=== PATIENT | female | born 1985 | race Caucasian/White ===

== ENCOUNTER 2017-08-31 02:26 | Inpatient (IN) ==
--- OUTSIDE RECORDS SUMMARY | 2017-08-31 02:33 | External Medical Summary | Continuity of Care Document ---
:1985 Author Organization [facility] Address [address] [place], [place] [id number] Phone Care Team Providers Name Role Phone Mary Beth Tejeda APRN Unavailable Unavailable Allergies, Adverse Reactions, Alerts Substance Reaction Severity Status Sulfa (Sulfonamide Antibiotics) Unknown Active Penicillins Unknown Active Medications Medication Instructions Dosage Effective Dates Status Comments (start - stop) levothyroxine 50 mcg take 1 tablet by 50 MCG - Active tablet oral route every day levothyroxine 25 mcg take 1 tablet by - Active tablet oral route 2 days a week (in addition to the 50mcg) 27 mg-0.8 take 1 tablet by Not Available - Active mg Tab oral route every day Zantac 75 mg tablet take 1 tablet by 75 MG - Active oral route 2 times every day with glass of water Problems Condition Effective Dates (start - stop) Clinical Status Encounter for suprvsn of normal - , third trimester 31 weeks gestation of - Endo, nutritional and metab diseases - comp preg, first tri Encounter for suprvsn of normal - , first trimester 12 weeks gestation of - Uterine size-date discrepancy, third - trimester Low Lying Placenta Nos Or W/out - Hemorrhage, Third Trimester Endo, nutritional and metab diseases - comp preg, third tri 32 weeks gestation of - Endo, nutritional and metab diseases - comp preg, second tri Encounter for suprvsn of normal - , second trimester 16 weeks gestation of - Endo, nutritional and metab diseases - comp preg, second tri Encounter for suprvsn of normal - , second trimester 21 weeks gestation of - Endo, nutritional and metab diseases - comp preg, second tri Encounter For Screening For - Malformations 21 weeks gestation of - Endo, nutritional and metab diseases - comp preg, third tri Encounter for suprvsn of normal - , third trimester 28 weeks gestation of - Encntr screen for infections w sexl - mode of transmiss Encounter for screening for oth - infec/parastc diseases Encounter for suprvsn of normal - , first trimester Encounter for screening of - mother Less than 8 weeks gestation of - Encounter for suprvsn of normal - , second trimester 24 weeks gestation of - Active Procedures Procedure Date OB Visit No Charge Results Test Name Date and Time Measure Units Reference Range Abnormal Flag Comments Unknown Advance Directives Directive Yes / No Effective Date File Name Unknown Encounters Encounter Practice Location Reason(s) Diagnoses Date Provider Care Team Description For Visit Members Donato [place] Uterine size-date Kayden Referring In Womens discrepancy, 7-201 [place]. 700 Provider: Dmitriy LIZARRAGA, third 8 Medical [facility], [address], Lying Placenta , Albin 609, [place], Nos Or W/out 120, [place], [place], Hemorrhage, [place], [address]. [id number], [place], tel:[phone] [place] nutritional and [phone] [id number] tel:[phone] metab diseases , [place]. [id number] comp preg, third tel:+31 tri32 weeks [phone] gestation of Donato [place] Encounter for Kayden Referring In Womens suprvsn of normal 4-201 [place]. 700 Provider: Health PA, , third 8 Medical [place] [address] [email or web address] weeks Center S, [address], gestation of Albin Yarbrough [place], 120, [place], [place], [place], [address]. , [place], tel: [place] [phone] tel: , [place]. tel: [phone] Donato [place] Apr-2 Kayden In Womens 0-201 [place]. 700 Health PA, 8 Medical [address], Albin Yarbrough, 120, [place], [place], [id number], [place], [place] [id number] tel: , [place]. tel: [phone] Associates Mc Diana, nutritional Apr-1 Kayden Referring In Womens and metab 7-201 [place]. 700 Provider: Health PA, diseases comp 8 Medical [facility] PO Box preg, third Center S, [address], triEncounter for Albin Yarbrough [place], suprvsn of normal 120, [place], [place], , [place], [address]. , [email or web address] weeks [place], tel: [place] gestation of [phone] tel: , [place]. tel: [phone] Associates Mc Cortés for Mar-2 Kayden Referring In Womens suprvsn of normal 2-201 [place]. 700 Provider: Health PA, , second 8 Medical [facility] [address] [email or web address] weeks Center S, [address], gestation of Albin Yarbrough [place], 120, [place], [place], [place], [address]. , [place], tel: [place] [phone] tel: , [place]. tel: [phone] Associates Mc Diana, nutritional Mar-0 Kayden Referring In Womens and metab 1-201 [place]. 700 Provider: Health PA, diseases comp 8 Medical [facility] PO Box preg, second Center S, [address], triEncounter for Albin Yarbrough [place] suprdickn of normal 120, [place], [place], , [place], [address]. [id number], [email or web address] weeks [place], tel:+ [place] gestation of [phone] tel: , [place]. tel: [phone] Donato Diana, nutritional Mar-0 Kayden Referring In Womens Ultrasound and metab 1- [place]. 700 Provider: Health PA, diseases comp 8 Medical [place] PO Box preg, second Center S, [address], triEncounter For Albin Yarbrough [place], 120, [place], [place], Screening For Mc GI[place]IA, [address]. [id number], [id number] [place], tel:+ [place] weeks gestation [phone] tel:+ of , [place]. tel: [phone] Donato Diana nutritional Saurav-2 Kayden Referring In Womens and metab 3 [place]. 700 Provider: Health PA, diseases comp 8 Medical [place] PO Box preg, second Center S, [address], triJenniferer [address]bin [address], [place], suprvsn of normal 120, [place], [place], , second GIULIA [place], [address]. [id number], [email or web address] weeks [place], tel:+ [place] gestation of [phone] tel: , [place]. tel: [phone] Donato Diana, nutritional Dec-2 Kayden Referring In Womens and metab 6- [place]. 700 Provider: Health PA, diseases comp 7 Medical [facility] PO Box preg, first Center S, [address], triEncounter [address]bin [address], [place], suprvsn of normal 120, [place], [place], , first GIULIA [place], [address]. [id number], [email or web address] weeks [place], tel:+ [place] gestation of [phone] tel: , [place]. tel: [phone] Donato Hortonntr screen for Nov-2 Kayden Referring In Womens infections w sexl 1-201 [place]. 700 Provider: Health PA, mode of 7 Medical [place] PO Box transmissEncounte Center S, [address], r for screening Albin Yarbrough [place], for oth 120, [place], [place], infe[place], [address]. [id number], diseasesEncounter [place], tel: for suprvsn of [phone] tel: normal , , [place]. first tel: trimesterEncounte [phone] r for screening of motherLess than 8 weeks gestation of Donato [place] Saurav-0 Kayden Referring In Womens 8-201 [place]. 700 Provider: Health ZIA, 5 [facility] Kayden R, 1522, , [place] [address] [place], 120, Medical [facility] [id number], [place], [place] [address], [place] [id number] [place], tel: , . [place], tel: [phone]. [id number] tel:[phone] Donato [place] Nov-0 Kayden Referring In Womens 2-201 [place]. 700 Provider: Health ZIA, 4 [facility] Kayden R, 1522, , [place] [address] [place], 120, Medical [facility] [id number], [place], [place] [address], [place] [id number] [place], tel: , . [place], tel: [phone]. [id number] tel:[phone] Donato [place] Nov-1 Mando In Womens 7-201 [place]. Health PA, 1 700 [facility] [address], [facility], 120, [id number], [facility] [place], tel: [phone] , [place]. tel: [phone] Donato [place] Sep-2 Holdeman In Womens 2-201 [place]aila. Health PA, 1 700 PO Box [facility] [address], [facility], 120, [id number], [facility] GIULIA, tel: [phone] , [place]. tel: [phone] Family History Family Member Diagnosis Age At Onset Maternal Grandmother Osteoporosis Paternal Grandfather Hypertension Paternal Grandfather Cardiovascular Disease Maternal Grandfather Cardiovascular Disease Mother Thyroid Disorder Mother Cardiovascular Disease Immunizations Vaccine Date Status Comments Influenza, injectable, completed Source: Other Provider quadrivalent, preservative free, 3 yrs or older Tdap completed Source: New Immunization Record Influenza, injectable, completed Source: Other Provider quadrivalent, preservative free, 3 yrs or older Payers Payer name Insurance type Covered libertarian ID Authorization(s) [facility] CI [id number] [facility] CI [id number] [facility] CI [id number] Social History Type Description Quantity Date Captured Alcohol Use Details No Caffeine Use Details Unknown Tobacco Use Status Unknown Smoking Status Never smoker Vital Signs Date / Height Weight BMI Pulse Blood Temperature Respiratory Body Head BMI Time: Rate Pressure Rate Surface Circumference percentile Area 145.50 25.7 108/ lbs 7 mm[Hg] 2:09 kg/m PM eter (2) Chief Complaint And Reason For Visit Unknown Chief Complaint And Reason For Visit Reason For Referral Reason For Referral Unknown Plan Of Care Date Type Action Status Appointment Monika Hayes BOOKED Appointment Monika Hayes BOOKED Future Order: Lab Order TSH ([id number]) Ordered Future Order: Lab Order TSH ([id number]) Ordered Future Order: Radiology Order Complete OB Ultrasound > 14 Ordered Weeks ([id number]) Date Type Problem Goal Intervention Status Start Date Unknown. History Of Present Illness Encounter Date Complaint History Of Present Illness This patient has no known history of present illness Functional Status Encounter Date Functional Assessment Cognitive Assessment Unknown Medications Administered Medication Instructions Dosage Effective Dates (start - stop) Status Comments Drug Treatment Unknown Instructions Date Instruction Additional Information environmental / work hazards travel use of any medications (including supplements, vitamins, herbs, OTC drugs) domestic violence seat belt use childbirth classes / hospital facilities hospital registration genetic testing new ob handbook anticipated course of care nutrition and weight gain counseling, special diet toxoplasmosis precautions (cats / raw meat) sexual activity exercise indications for ultrasound HIV and other routine tests risk factors identified by history influenza vaccine
--- OUTSIDE RECORDS SUMMARY | 2017-08-31 02:33 | External Medical Summary | Continuity of Care Document ---
:1983 Author Organization [facility] Address [address] [place], [place] [id number] Phone Care Team Providers Name Role Phone Mary Beth Tejeda APRN Unavailable Unavailable Allergies, Adverse Reactions, Alerts Substance Reaction Severity Status Sulfa (Sulfonamide Antibiotics) Unknown Active Penicillins Unknown Active Medications Medication Instructions Dosage Effective Dates Status Comments (start - stop) levothyroxine 50 mcg take 1 tablet by 50 MCG - Active tablet oral route every day 27 mg-0.8 take 1 tablet by Not Available - Active mg Tab oral route every day Zantac 75 mg tablet take 1 tablet by 75 MG - Active oral route 2 times every day with glass of water Problems Condition Effective Dates (start - stop) Clinical Status Endo, nutritional and metab diseases - comp preg, first tri Encounter for suprvsn of normal - , first trimester 12 weeks gestation of - Endo, nutritional and [...] - Malformations 21 weeks gestation of - Encntr screen for infections w sexl - mode of transmiss Encounter for screening for oth - infec/parastc diseases Encounter for suprvsn of normal - , first trimester Encounter for screening of - mother Less than 8 weeks gestation of - Encounter for suprvsn of normal - , second trimester 24 weeks gestation of - Active Procedures Procedure Date Unknown Results Test Name Date and Time Measure Units Reference Range Abnormal Flag Comments Unknown Advance Directives Directive Yes / No Effective Date File Name Unknown Encounters Encounter Practice Location Reason(s) Diagnoses Date Provider Care Team Description For Visit Members Donato [place] Encounter for Mar-2 Kayden Referring In Womens suprvsn of normal 2-201 [place]. 700 Provider: Dmitriy LIZARRAGA, , second 8 Medical [place] PO Box [email or web address] weeks Center S, [address], gestation of Albin Yarbrough [place], 120, [place], [place], [place], [address]. [id number], [place], tel:+ [phone] tel: , [place]. tel: [phone] Donato [place] Mar-2 Kayden In Womens 0-201 [place]. 700 Dmitriy LIZARRAGA Medical PO [address], Albin Yarbrough, [address] [place] [address], [place], [id number], [place], [place] [id number] tel: , [place]. tel: [phone] Donato Diana nutritional Mar-0 Kayden Referring In Womens and metab 1-201 [place]. 700 Provider: Dmitriy LIZARRAGA diseases comp 8 Medical [place] PO Box preg, second Center S, [address], triEncounter for Albin Yarbrough, [place], suprvsn of normal 120, [place], [place], , [place], [address]. [id number], [email or web address] weeks [place], tel:+ [place] gestation of [phone] tel:316 , [place]. tel: [phone] Associates Mc Diana nutritional Mar-0 Kayden Referring In Womens Ultrasound and metab 1-201 [place]. 700 Provider: Health PA, diseases comp 8 Medical [facility] PO Box preg, second Center S, [address], triEncounter For Albin Yarbrough, [place], 120, [place], [place], Screening For GIULIA [place], [address]. [id number], [id number] [place], tel:+ [place] weeks gestation [phone] tel: of , [place]. tel: [phone] Donato [place] Feb- Kayden Referring In Womens - [place]. 700 Provider: Health PA, 8 [facility] PO Box Center S, [address], Albin Yarbrough, [place], 120, [place], [place], GIULIA [place], [address]. , [place], tel:+ [place] [phone] tel: , [place]. tel: [phone] Donato Diana nutritional Saurav-2 Kayden Referring In Womens and metab [place]. 700 Provider: Health PA, diseases comp 8 [facility] PO Box preg, second Center S, [address], triEncounter for Albin Yarbrough, [place], suprvsn of normal 120, [place], [place], , second GIULIA [place], [address]. , [email or web address] weeks [place], tel:+ [place] gestation of [phone] tel:+ , [place]. tel: [phone] Donato Diana nutritional Dec-2 Kayden Referring In Womens and metab 6- [place]. 700 Provider: Health PA, diseases comp 7 Medical [facility] PO Box preg, first Center S, [address], triEncounter for Albin Yarbrough, [place], suprvsn of normal 120, [place], [place], , first GIULIA [place], [address]. [id number], [email or web address] weeks [place], tel:+ [place] gestation of [phone] tel:+316 , [place]. tel: [phone] Donato [place] Encntr screen for Nov-2 Kayden Referring In Womens infections w sexl 1- [place]. 700 Provider: Health PA, mode of 7 Medical [facility] Box transmissEncounte Center S, [address], r for screening , Albin [address], [place], for oth 120, [place], [place], [place]fe[place], [address]. [id number], diseasesEncounter [place], tel: [place] for suprvsn of [phone] tel: normal , , [place]. first tel: trimesterEncounte [phone] r for screening of motherLess than 8 weeks gestation of Associates Mc Saurav-0 Kayden Referring In Womens 8-201 [place]. 700 Provider: Dmitriy LIZARRAGA, 5 [facility] Kayden R, 1522, , [facility] 700 [place], 120, Medical [place], [facility] [id number], [place], [facility] 120, [place] [id number] [place], tel: , [place]. [place], tel: [phone]. [id number] tel:[phone] Donato [place] Oct-0 Kayden Referring In Womens 2-201 [place]. 700 Provider: Dmitriy LIZARRAGA, 4 [facility] Kayden Roper, 1522, , [place] [address] [place], 120, Medical [facility] [id number], [place], [facility] 120, [place] [id number] [place], tel: , [place]. [place], tel: [phone]. [id number] tel:[phone] Donato [place] Nov-1 Mando In Womens 7-201 Laila. Health ZIA, 1 700 [facility] [address], [address] [place], [facility] [place], 120, [id number], [place], [place], tel: [phone] , [place]. tel: [phone] Donato [place] Sep-2 Mando In Womens 2-201 Laila. Health PA, 1 700 [facility] [address], [address], [facility] [place], 120, [id number], [place], [place], tel:[phone] , [place]. tel: [phone] Family History Family Member Diagnosis Age At [...] older Payers Payer name Insurance type Covered alliance party ID Authorization(s) [facility] [employer] CI [id number] [facility] CI [id number] [facility] CI [id number] Social History Type Description Quantity Date Captured Unknown Vital Signs Date / Height Weight BMI Pulse Blood Temperature Respiratory Body Head BMI Time: Rate Pressure Rate Surface Circumference percentile Area Unknown Chief Complaint And Reason For Visit Unknown Chief Complaint And Reason For Visit Reason For Referral Reason For Referral Unknown Plan Of Care Date Type Action Status Appointment Monika Hayes BOOKED Future Order: Lab Order TSH ([id number]) Ordered Future Order: Lab Order TSH ([id number]) Ordered Future Order: Radiology Order Complete OB Ultrasound > 14 Ordered Weeks ([id number]) Date Type Problem Goal Intervention Status Start [...]
--- OUTSIDE RECORDS SUMMARY | 2017-08-31 02:33 | External Medical Summary | Continuity of Care Document ---
:1983 Author Organization [facility] Address [address] [place], [place] [phone] Phone Care Team Providers Name Role Phone [...] second trimester 24 weeks gestation of - Encounter for suprvsn of normal - , third trimester 31 weeks gestation of - Active Procedures Procedure Date Unknown Results Test Name Date and Time Measure Units Reference Range Abnormal Flag Comments Unknown Advance Directives Directive Yes / No Effective Date File Name Unknown Encounters Encounter Practice Location Reason(s) Diagnoses Date Provider Care Team Description For Visit Members Donato [place] Encounter for Kayden Referring In Womens suprvsn of normal 4-201 [place]. 700 Provider: Health PA, , third 8 Medical [place] PO Box [email or web address] weeks Center S, [address], gestation of Albin Yarbrough 609, [place], 120, [place], [place], [place], [address]. [id number], [place], tel: [phone] tel: , . [address] tel: [phone] Donato [place] Apr-2 Kayden In Womens 0-201 [place]. 700 Health IZA, 8 Medical [address], Albin Yarbrough, [facility], [place], [place], [id number], [place], [place] [id number] tel: , . [address] tel: [phone] Donato [place] Endo, nutritional Apr-1 Kayden Referring In Womens and metab 7-201 [place]. 700 Provider: Health PA, diseases comp 8 Medical [place] PO Box preg, third Center S, [address], triEncounter for Albin Yarbrough, [place], suprvsn of normal 120, [place], [place], , [place], [address]. [id number], [email or web address] weeks [place], tel: [place] gestation of [phone] [id number] tel: , [place]. tel: [phone] Donato Cortés for Mar-2 Kayden Referring In Womens suprvsn of normal 2-201 [place]. 700 Provider: Health PA, , second 8 Medical [place] PO Box [email or web address] weeks Center S, [address], gestation of Albin Yarbrough, [place], 120, [place], [place], [place], [address]. [id number], [place], tel: [place] [phone] tel: , [place]. tel: [phone] Associates Mc Diana, nutritional Mar-0 Kayden Referring In Womens and metab 1-201 [place]. 700 Provider: Health PA, diseases comp 8 Medical [facility] PO Box preg, second Center S, [address], triEncounter for Albin Yarbrough [place] suprvsn of normal 120, [place], [place], , [place], [address]. , [email or web address] weeks [place], tel: [place] gestation of [phone] [id number] tel: , [place]. tel: [phone] Associates Mc Diana, nutritional Mar-0 Kayden Referring In Womens Ultrasound and metab 1-201 [place]. 700 Provider: Health PA, diseases comp 8 Medical [place] PO Box preg, second Center S, [address], triEncounter For Albin Yarbrough [place], 120, [place], [place], Screening For GIULIA [place], [address]. [id number], [id number] [place], tel: [place] weeks gestation [phone] [id number] tel:316 of , [place]. tel: [phone] Donato Diana, nutritional Saurav-2 Kayden Referring In Womens and metab 3-201 [place]. 700 Provider: Health ZIA, diseases comp 8 Medical [place] PO Box preg, second Center S, [address], triEncounter for Albin Yarbrough, [place], suprvsn of normal 120, [place], [place], , [place], [address]. , weeks [place], tel:+ [place] gestation of [phone] tel: , [place]. tel: [phone] Donato [place] Endo, nutritional Dec-2 Kayden Referring In Womens and metab 6-201 [place]. 700 Provider: Health PA, diseases comp [address] [facility] Box preg, first Center S, [address], triEncounter for Albin Yarbrough, [place], suprvsn of normal 120, [place], [place], , [place], [address]. , [email or web address] weeks [place], tel: [place] gestation of [phone] [id number] tel: , [place]. tel: [phone] Donato [place] Encntr screen for Nov-2 Kayden Referring In Womens infections w sexl 1- [place]. 700 Provider: Health PA, mode of [address] [facility] Box transmissEncounte Center S, [address], r for screening Albin Yarbrough, [place], for oth 120, [place], [place], infe[place], [address]. , diseasesEncounter [place], tel: [place] for suprvsn of [phone] tel: normal , , [place]. first tel: trimesterEncounte [phone] r for screening of motherLess than 8 weeks gestation of Donato [place] Saurav-0 Kayden Referring In Womens 8-201 [place]. 700 Provider: Dmitriy LIZARRAGA, 5 [facility] Kayden R, 152, Albin Yarbrough 700 [place], [facility], Medical [facility] [id number], [place], Albin 120, [place] [id number] [place], tel: , [place]. [place], tel:[phone]. [id number] tel:[phone] Donato [place] Oct-0 Kayden Referring In Womens 2-201 [place]. 700 Provider: Health PA, 4 Medical [facility] Kayden R, [address], Dr, Albin 700 [place], 120, Medical [place], [facility] [address] [id number], [place], Albin 120, [place] [id number] [place], tel:+ , [place]. [place], tel: [phone]. [id number] tel:[phone] Donato [place] Nov- Mando In Womens 7-201 [place]a. Health PA, 1 700 [facility] [address] [place], [facility] [place], 120, [id number], [place], [place], tel: [phone] , [place]. tel: [phone] Donato [place] Oct-2 Garretteman In Womens 2-201 [place]a. Health PA, 1 700 [facility] [address] [place], [facility] [place], 120, [id number], [place], [place], tel: [phone] , [place]. tel: [phone] Family History Family Member Diagnosis Age At [...] older Payers Payer name Insurance type Covered republican ID Authorization(s) [facility] [place] CI [id number] [facility] CI [id number] [facility] CI [id number] Social History Type Description Quantity Date Captured [...] Hayes BOOKED Future Order: Lab Order TSH ([id number]) Ordered Future Order: Lab Order TSH ([id number]) Ordered Future Order: Radiology Order Complete OB Ultrasound > 14 Ordered Weeks ([id number]) Date Type Problem Goal Intervention Status Start [...]
--- OUTSIDE RECORDS SUMMARY | 2017-08-31 02:33 | External Medical Summary | Continuity of Care Document ---
:1983 Author Organization [facility] Address [address] [facility] [place], [place] [id number] Phone Care Team Providers Name Role Phone Mary Beth Tejeda APRN Unavailable Unavailable Allergies, Adverse Reactions, Alerts Substance Reaction Severity Status Sulfa (Sulfonamide Antibiotics) Unknown Active Penicillins Unknown Active Medications Medication Instructions Dosage Effective Dates Status Comments (start - stop) levothyroxine 25 mcg take 1 tablet by 25 MCG - Active tablet oral route every day 27 mg-0.8 take 1 tablet by Not Available - Active mg Tab oral route every day Problems Condition Effective Dates (start - stop) Clinical Status Encntr screen for infections w sexl - mode of transmiss Encounter for screening for oth - infec/parastc diseases Encounter for suprvsn of normal - , first trimester Encounter for screening of - mother Less than 8 weeks gestation of - Active Procedures Procedure Date Unknown Results Test Name Date and Time Measure Units Reference Range Abnormal Flag Comments Unknown Advance Directives Directive Yes / No Effective Date File Name Unknown Encounters Encounter Practice Location Reason(s) Diagnoses Date Provider Care Team Description For Visit Members Donato [place] Kayden In [facility] [address]- [address], 7 Medical [address], Albin Yarbrough, 120, [place], [place], [id number], [place], [place] [id number] tel:+ , [place]. [id number] tel: [phone] Donato [place] Encntr screen for Nov-2 Kayden Referring In Womens infections w sexl 1-201 [place]. 700 Provider: Health ZIA, mode of 7 [facility], [address], for screening for Albin Yarbrough [address]Damian, [place], [facility] infec/parastc 120, [place], [place], [place], [address]. [id number], for suprvsn of [place], tel: [place] normal , [phone] tel: [facility] , [place]. trimesterEncounter tel: for [phone] screening of motherLess than 8 weeks gestation of Donato [place] Nov- Kayden In Womens 4-201 [place]. 700 Health ZIA, 7 [facility] [address], , Albin Curtis, [facility], [place], [place], [id number], [place], [place] [id number] tel: , [place]. tel: [phone] Donato [place] Saurav-0 Kayden Referring In Womens 8-201 [place]. 700 Provider: Health ZIA, 5 [facility] Kayden R, 1522, , Albin 700 Ever, 120, Medical [place] [facility] [id number], [place], [facility] 120, [place] [id number] [place], tel: , [place]. [place], tel: [phone]. [id number] tel:[phone] Donato [place] Nov-0 Kayden Referring In Womens 2-201 [place]. 700 Provider: Health ZIA, 4 [facility] Kayden R, 1522, , [place] Curtis, 120, Medical [place] [facility] [id number], [place], Albin 120, [place] [id number] [place], tel: , [place]. [place], tel: [phone]. [id number] tel:[phone] Donato [place] Dec- Holdeman In Womens 7-201 [place]. Health ZIA, 1 700 [facility] [address], [address], [place], 120, [id number], [place], [facility], tel:[phone] , [place]. tel: [phone] Donato [place] Sep-2 Mando In Womens 2-201 [place]. [facility] ZIA, 1 700 [facility] [address], [address] [place], [facility] [place], 120, [id number], [place], tel:[phone] , [place]. tel: [phone] Family History Family Member Diagnosis Age At [...] older Payers Payer name Insurance type Covered democrat ID Authorization(s) BCBS Out Of State [id number] [facility] CI [id number] [facility] CI [id number] Social History Type Description Quantity Date Captured Unknown Vital Signs Date / Height Weight BMI Pulse Blood Temperature Respiratory Body Head BMI Time: Rate Pressure Rate Surface Circumference percentile Area Unknown Chief Complaint And Reason For Visit Unknown Chief Complaint And Reason For Visit Reason For Referral Reason For Referral Unknown Plan Of Care Date Type Action Status Appointment Monika Hayes BOOKED Date Type Problem Goal Intervention Status Start [...]
--- OUTSIDE RECORDS SUMMARY | 2017-08-31 02:33 | External Medical Summary | Continuity of Care Document ---
:1983 Author Organization [facility] Address [address] [place], [place] [phone] Phone Care Team Providers Name Role Phone [...] Care Team Description For Visit Members Donato Diana nutritional Mar-0 Kayden Referring In Womens and metab [place]. 700 Provider: Health ZIA, diseases comp 8 Medical Mono [place] PO Box preg, second Center S, [address], [address], [place], suprvsn of normal 120, [place], [place], , [place], [address]. [id number], [email or web address] weeks [place], tel: [place] gestation of [phone] tel: , [place]. tel: [phone] Donato Diana nutritional Mar-0 Kayden Referring In Womens Ultrasound and metab [place]. 700 Provider: Health ZIA diseases comp 8 Medical Mono [place] PO Box preg, second Center S, [address], [address], [place], [facility], [place], [place], [place], [address]. [id number], [id number] [place], tel: [place] weeks gestation [phone] tel: of , [place]. tel: [phone] Donato [place] Apr-1 Kayden Referring In Womens 201 [place]. 700 Provider: Health PA, 8 Medical Mono [place] PO Box Center S, [address], Albin Yarbrough [place], [facility], [place], [place], [place], [address]. [id number], [place], tel: [place] [phone] tel: , [place]. tel: [phone] Donato Diana nutritional Saurav-2 Kayden Referring In Womens and metab 3-201 [place]. 700 Provider: Health PA, diseases comp 8 [facility] PO Box preg, second Center S, [address], triEncounter for Albin Yarbrough [place], suprvsn of normal 120, [place], [place], , [place], [address]. [id number], weeks [place], tel: [place] gestation of [phone] tel: , [place]. tel: [phone] Donato [place] Endo, nutritional Dec-2 Kayden Referring In Womens and metab 6-201 [place]. 700 Provider: Health PA, diseases comp 7 [facility] PO Box preg, first Center S, [address], triEncounter for Albin Yarbrough, Ever suprvsn of normal 120, [place], [place], , [place], [address]. , [email or web address] weeks [place], tel: [place] gestation of [phone] tel: , [place]. tel:[phone] Donato [place] Encntr screen for Nov-2 Kayden Referring In Womens infections w sexl 1- [place]. 700 Provider: Health PA, mode of 7 [facility] Box transmissEncounte Center S, [address], r for screening Albin Yarbrough [place], for oth 120, [place], [place], infec/[place], [address]. , [facility], tel: [place] for suprvsn of [phone] tel: normal , , [place]. first tel: trimesterEncounte [phone] r for screening of motherLess than 8 weeks gestation of Donato [place] Saurav-0 Kayden Referring In Womens 8-201 [place]. 700 Provider: Health PA, 5 [facility] Box Center Kayden R, 1522, [place] Yarbrough, [facility], Medical [place] [facility] [id number], [place], [place]bin 120, [place] [id number] [place], tel: , [place]. [place], tel:[phone]. [id number] tel:[phone] Donato [place] Oct-0 Kayden Referring In Womens 2-201 [place]. 700 Provider: Health PA, 4 Medical [place] [address] [place] Kayden R, [address], Dr, Albin 700 [place], 120, Medical [place], [facility] [address] [id number], [place], [place] 120, [place] [id number] [place], tel: , [place]. [place], tel: [phone]. [phone] tel:[phone] Donato [place] Nov-1 Garretteman In Womens 7-201 [place]. Health PA, 1 700 PO Box [facility] [address], [address] Ever, [facility], 120, [id number], [place], [place], tel: [phone] , [place]. tel: [phone] Donato [place] Sep-2 Holdeman In Womens 2-201 [place]. Health PA, 1 700 PO Box [facility] [address], [address] Ever, [facility] [place], 120, [id number], [place], [place], tel: [phone] , [place]. tel: [phone] Family History Family Member Diagnosis Age At [...] Insurance type Covered alliance party ID Authorization(s) [facility] CI [id number] [facility] CI [id number] [facility] CI [id number] Social History Type Description Quantity Date Captured [...] Hayes BOOKED Future Order: Lab Order TSH ([id number]) Ordered Future Order: Lab Order TSH ([id number]) Ordered Future Order: Radiology Order Complete OB Ultrasound > 14 Ordered Weeks ([id number]) Date Type Problem Goal Intervention Status Start [...]
--- OUTSIDE RECORDS SUMMARY | 2017-08-31 02:33 | External Medical Summary | Continuity of Care Document ---
:1983 Author Organization [facility] Address [address] [place], [place] [phone] Phone Care Team Providers Name Role Phone [...] first trimester 12 weeks gestation of - Encntr screen for [...] Description For Visit Members Donato Diana nutritional Saurav-2 Kayden Referring In Womens and metab diseases 3-201 [place]. 700 Provider: Health ZIA, comp preg, second 8 Medical [place] PO Box triEncounter for Center S, [address], suprvsn of normal Albin Yarbrough [place], , second 120, [place], [place], [email or web address] [place], [address]. , gestation of [place], tel: [place] [phone] tel: , [place]. tel: [phone] Donato [place] Dec-2 Kayden In Womens 6-201 [place]. 700 Health ZIA, 7 Medical PO [address], Albin Yarbrough, [facility], [place], [place], [id number], [place], [place] [id number] tel: , [place]. tel: [phone] Donato Diana nutritional Dec-2 Kayden Referring In Womens and metab diseases 6-201 [place]. 700 Provider: Health ZIA, comp preg, first 7 Medical [facility] PO Box triEncount for Center S, [address], suprvsn of normal Albin Yarbrough [place], , first 120, [place], [place], [id number] [place], [address]. , gestation of [place], tel: [place] [phone] tel: , [place]. tel: [phone] Donato [place] Encntr screen for Nov-2 Kayden Referring In Womens infections w sexl 1-201 [place]. 700 Provider: Dmitriy LIZARRAGA, mode of 7 Medical [place] PO Box transmissEncount Center S, [address], for screening for [place] Yarbrough [place], roxieh infec/parastc 120, [place], [place], [place], [address]. , for suprvsn of [place], tel: [place] normal , [phone] tel: [facility] , [place]. trimesterEncounter tel: for [phone] screening of motherLess than 8 weeks gestation of Associates Mc Kayden Referring In Womens 8-201 [place]. 700 Provider: Dmitriy LIZARRAGA, 5 [facility] Marily Alvarez, , Albin 700 [place], 120, Medical [place], [facility] [id number], [place], [facility] 120, [place] [id number] [place], tel: , [place]. [place], tel: [phone]. [phone] tel:[phone] Donato [place] Kayden Referring In Womens 2-201 [place]. 700 Provider: Dmitriy LIZARRAGA, 4 [facility] Kayden [address]oper 1522, , [facility] 700 [place], 120, Medical [place], [facility] [id number], [place], [facility] 120, [place] [id number] [place], tel: , . [place], tel: [phone]. [id number] tel:[phone] Donato [place] Nov-1 Holdeman In Womens 7-201 [place]. Health ZIA, 1 700 [facility] 1522, [address], [facility], 120, [id number], [facility] [place], tel: [phone] , [place]. tel: [phone] Donato [place] Sep-2 Holdeman In Womens 2-201 [place]. Health ZIA, 1 700 [facility] [address]22, [address], [facility], 120, [id number], [facility] [place], tel: [phone] , [place]. tel: [phone] Family History Family Member Diagnosis Age At [...] name Insurance type Covered republican ID Authorization(s) [facility] CI [id number] [facility] CI [id number] [facility] CI [id number] Social History Type Description Quantity Date Captured Alcohol Use Details No Caffeine Use Details Unknown Tobacco Use Status Unknown Smoking Status Never smoker Vital Signs Date / Height Weight BMI Pulse Blood Temperature Respiratory Body Head BMI Time: Rate Pressure Rate Surface Circumference percentile Area 128.50 22.7 109/67 2018 lbs 6 mm[Hg] 9:15 kg/m AM eter (2) Chief Complaint And Reason For Visit Unknown Chief Complaint And Reason For Visit Reason For Referral Reason For Referral Unknown Plan Of Care Date Type Action Status Appointment Monika Hayes BOOKED Appointment Monika Hayes BOOKED Future Order: Lab Order TSH ([id number]) Ordered Future Order: Lab Order TSH ([id number]) Ordered Date Type Problem Goal Intervention Status Start [...]
--- OUTSIDE RECORDS SUMMARY | 2017-08-31 02:33 | External Medical Summary | Continuity of Care Document ---
:1983 Author Organization [facility] Address [address] [place], [place] [phone] Phone Care Team Providers Name Role Phone [...] second trimester 24 weeks gestation of - Endo, nutritional and [...] Provider Care Team Description For Visit Members Associates Mc Encounter for Kayden Referring In Womens suprvsn of normal 2-201 [place]. 700 Provider: Health ZIA, , second 8 Medical Mono [place] PO Box [email or web address] weeks Center S, [address], gestation of Albin Yarbrough [place], 120, [place], [place], GIULIA [place], [address]. , [place], tel:+ [place] [phone] tel: , [place]. tel: [phone] Associates Mc Diana nutritional Mar-0 Kayden Referring In Womens and metab [place]. 700 Provider: Dmitriy LIZARRAGA diseases comp 8 Medical Mono [place] PO Box preg, second Center S, [address], triEncounter [address], [place], suprvsn of normal 120, [place], [place], , second GIULIA [place], [address]. , [email or web address] weeks [place], tel: [place] gestation of [phone] tel: , [place]. tel: [phone] Associates Mc Diana nutritional Mar-0 Kayden Referring In Womens Ultrasound and metab [place]. 700 Provider: Dmitriy LIZARRAGA diseases comp 8 Medical Mono [place] PO Box preg, second Center S, [address], triEncounter For Al[place] Yarbrough [place], 120, [place], [place], Screening For GIULIA [place], [address]. [id number], [id number] [place], tel:+ [place] weeks gestation [phone] tel: of , [place]. tel: [phone] Donato [place] Apr- Kayden Referring In Womens [place]. 700 Provider: Health PA, 8 Medical [facility] PO Box Center S, [address], Albin Yarbrough, [place], [facility], [place], [place], [place], [address]. , [place], tel: [place] [phone] tel: , [place]. tel: [phone] Donato Diana, nutritional Saurav-2 Kayden Referring In Womens and metab [place]. 700 Provider: Health PA, diseases comp 8 [facility] PO Box preg, second Center S, [address], triEncounter for Al[place] Yarbrough, [place], suprvsn of normal 120, [place], [place], , [place], [address]. , [email or web address] weeks [place], tel: [place] gestation of [phone] tel: , [place]. tel: [phone] Associates Mc Diana nutritional Dec-2 Kayden Referring In Womens and metab [place]. 700 Provider: Health PA, diseases comp 7 Medical [facility] PO Box preg, first Center S, [address], triEncounter for Al[place] Yarbrough, [place], suprvsn of normal 120, [place], [place], , [place], [address]. , [email or web address] weeks [place], tel: [place] gestation of [phone] tel: , [place]. tel: [phone] Donato [place] Encntr screen for Nov-2 Kayden Referring In Womens infections w sexl - [place]. 700 Provider: Health PA, mode of 7 Medical [facility] PO Box transmissEncounte Center S, [address], r for screening Al[place] Yarbrough, Ever for oth 120, [place], [place], [place], [address]. [id number], diseases[facility]count[facility], tel: for suprvsn of [phone] tel: normal , , [place]. first tel: trimesterEncvalleycare medical centere [phone] r for screening of motherLess than 8 weeks gestation of Associates Mc Kayden Referring In Womens 8-201 [place]. 700 Provider: Health ZIA, 5 [facility] Kayden Roper, 1522, , [place] [address] [place], 120, Medical [place], [facility] [id number], [place], [facility] 120, [place] [id number] [place], tel: , [place]. [place], tel: [phone]. [id number] tel:[phone] Donato [place] Kayden Referring In Womens 2-201 [place]. 700 Provider: Health ZIA, 4 [facility] Kayden Roper, 1522, , [place] [address] [place], 120, Medical GIULIA, [facility] [id number], [place], [facility] 120, [place] [id number] [place], tel: , [place]. [place], tel: [phone]. [phone] tel:[phone] Donato [place] Nov-1 Mando In Womens 7-201 [place]. Health ZIA, 1 700 [facility] [address], [address], [facility], 120, [id number], [facility] [place], tel: [phone] , [place]. tel: [phone] Donato [place] Sep-2 Mando In Womens 2-201 [place]. Health ZIA, 1 700 [facility] [address], [address] Ever, [facility] [place], 120, [id number], [place], [place], tel: [phone] , [place]. tel: [phone] Family History Family Member Diagnosis Age At [...] name Insurance type Covered republican ID Authorization(s) [facility] [employer] CI [id number] [facility] CI [id number] [facility] CI [id number] Social History Type Description Quantity Date Captured Alcohol Use Details No Caffeine Use Details Unknown Tobacco Use Status Unknown Smoking Status Never smoker Vital Signs Date / Height Weight BMI Pulse Blood Temperature Respiratory Body Head BMI Time: Rate Pressure Rate Surface Circumference percentile Area 140.30 24.8 103/60 2018 lbs 5 mm[Hg] 10:30 kg/m AM eter (2) Chief Complaint And Reason For Visit Unknown Chief Complaint And Reason For Visit Reason For Referral Reason For Referral Unknown Plan Of Care Date Type Action Status Appointment Monika Hayes BOOKED Future Order: Lab Order TSH ([id number]) Ordered Future Order: Lab Order TSH ([id number]) Ordered Future Order: Radiology Order Complete OB Ultrasound > 14 Ordered Weeks ([id number]) Date Type Problem Goal Intervention Status Start [...]
--- OUTSIDE RECORDS SUMMARY | 2017-08-31 02:33 | External Medical Summary | Continuity of Care Document ---
:1983 Author Organization [facility] [facility] Address [address] [place], [place] [phone] Phone Care Team Providers Name Role Phone [...] gestation of - Active Procedures Procedure Date Initial OB Visit No Charge - FOLLOW UP REP Infct antign, chlamydia trac, ampl Neisseria Gonorrhoeae, Amplification Results Test Name Date and Time Measure Units Reference Range Abnormal Flag Comments Panel Description: CHLAMYDIA/N. GONORRHOEAE RNA, TMA CHLAMYDIA NOT DETECTED NOT DETECTED N TRACHOMATIS RNA, 09:50:00 TMA NEISSERIA NOT DETECTED NOT DETECTED N GONORRHOEAE RNA, 09:50:00 TMA [id number] SEE NOTE This test was 09:50:00 performed using the APTIMA COMBO2 Assay([employer] The analytical performance characteristics of this assay, when used to test SurePath specimens havebeen determined by [facility]. REPORT COMMENT:FASTING:UNKNO WNTest performed at [facility] [id number] [place] [address]Jyocfayy: JERILYN DOUGLAS DO,MPH Panel Description: Pap Smear With HPV Reflex If ASCUS Document Pap Smear 09:00:00 See scanned report Advance Directives Directive Yes / No Effective Date File Name Unknown Encounters Encounter Practice Location Reason(s) Diagnoses Date Provider Care Team Description For Visit Members Donato [place] Encntr screen for Dec-2 Kayden Referring In Womens infections w sexl 1-201 [place]. 700 Provider: Dmitriy LIZARRAGA, mode of 7 [facility], [address], for screening for Albin Yarbrough 609, [place], [facility] infec/parastc [facility], [place], [place], diseasesEncsan [place]ente [place], [address]. [id number], for suprvsn of [place], tel: normal , [phone] tel: first , [place]. [facility] tel: for [phone] screening of motherLess than 8 weeks gestation of Donato [place] Nov-2 Kayden In Womens 4-201 [place]. 700 Dmitriy LIZARRAGA, 7 [facility] Box [place] [address], Albin Yarbrough, [facility], MAMc, [id number], [place], [place] [id number] tel: , [place]. tel: [phone] Donato [place] Saurav-0 Kayden Referring In Womens 8-201 [place]. 700 Provider: Dmitriy LIZARRAGA, 5 [facility] Kayden [address]oper [address]22, [place] Yarbrough, [facility], [facility] [place] [id number], [place], [place] [address], [id number] [place], tel: , [place]. [place], tel: [phone]. [id number] tel:[phone] Donato [place] Oct-0 Kayden Referring In Womens 2-201 [place]. 700 Provider: Health PA, 4 Medical [facility] Box Center Kayden R, 15[address], Dr, [place] 700 [place], 120, Medical [place], [facility] Dr [id number], [place], [place] 120, [place] [id number] [place], tel:+ , [place]. [place], tel: [phone]. [id number] tel:[phone] Associates Mc Nov-1 Mando In Womens 7-201 [place]. Health PA, 1 700 [facility] [address], [address] Ever, [facility] [place], 120, [id number], [place], [place], tel: [phone] , [place]. tel: [phone] Associates Mc Sep-2 Mando In Womens 2-201 [place]. Health PA, 1 700 PO Box [facility] [address], [address] Ever, [facility] [place], 120, [id number], [place], [place], tel: [phone] , [place]. tel: [phone] Family History Family Member Diagnosis Age At [...] older Payers Payer name Insurance type Covered constitution party ID Authorization(s) BCBS Out Of State [id number] [facility] CI [id number] [facility] CI [id number] Social History Type Description Quantity Date Captured Alcohol Use Details No Caffeine Use Details Unknown none per day Tobacco Use Status Never smoked tobacco Smoking Status Never smoker Non-Smoking Tobacco Use : No Details Available : No Details Available Details Vital Signs Date / Height Weight BMI Pulse Blood Temperature Respiratory Body Head BMI Time: Rate Pressure Rate Surface Circumference percentile Area 119.60 21.1 109/ lbs 8 mm[Hg] 9:01 kg/m AM eter (2) Chief Complaint And [...]
[2017-08-31] MEDS ORDERED: MAG-AL + SIM ORAL LIQUID 30ml PO PRN ×2 (02:38→03:45)
[2017-08-31] MEDS ORDERED: CARBOPROST 250 MCG/ML INJECTION IM PRN (02:38)
[2017-08-31] MEDS ORDERED: ACETAMINOPHEN 500 MG TABLET PO PRN ×2 (02:38→03:45)
[2017-08-31] MEDS ORDERED: METHYLERGONOVINE 0.2 MG/ML INJECTION IM PRN (02:38)
[2017-08-31] MEDS ORDERED: CALCIUM CARBONATE Chewable 500mg TABLET PO PRN ×2 (02:38→03:45)
[2017-08-31] MEDS ORDERED: LR 1,000 ML IV PRN (02:38)
--- NOTE | 2017-08-31 03:01 | Anesthesia Preoperative Report ---
Anesthesia Epidural/Spinal Rec - Date and Time Date: 08/31/17 Preoperative Diagnosis: SROM Procedure: Labor Epidural Plan: Epidural - Vital Signs /Para: G: P: - Medictaions & Allergies Inpatient Medications: Current Medications Acetaminophen (Tylenol) 500 - 1,000 mg PO Q4H PRN PRN Reason: Pain Al Hydroxide/Mg Hydroxide (Maalox Plus) 30 ml PO Q3H PRN PRN Reason: Indigestion Calcium Carbonate (Tums) 500 - 1,000 mg PO Q2H PRN PRN Reason: Indigestion Carboprost Tromethamine (Hemabate) 250 mcg IM O PRN PRN Reason: .Downtime Lactated Ringer's (Lactated Ringers) 1,000 mls @ 999 mls/hr IV .Q1H1M PRN Methylergonovine Maleate (Methergine) 0.2 mg IM O PRN Misoprostol (Cytotec) 800 mcg TX ONCE PRN Allergies/Adverse Reactions: Allergies Allergy/AdvReac Type Severity Reaction Status Date / Time Penicillins Allergy Intermediate HIVES Verified 06/14/11 04:30 Sulfa (Sulfonamide Allergy Intermediate HIVES Verified 06/14/11 04:30 Antibiotics) - Home Medications Home Medications: Home Medications Medication Instructions Recorded Confirmed Type Vits W-Ca,Fe,Fa(<1MG) 1 tab PO DAILY #0 06/14/11 History () levothyroxine 25 mcg tablet 25 mcg PO DAILY #30 tab 08/24/17 Rx levothyroxine 50 mcg tablet 50 mcg PO DAILY #30 tab 08/24/17 Rx - Medical History Respiratory: DENIES: Asthma, Bronchitis, Chronic Obstructive Pulmonary Disease (COPD), Dyspnea, Orthopnea, Pulmonary Embolism, Pneumonia, Upper Respiratory Infection, Pulmonary Edema, Sleep Apnea, Tuberculosis, Other Cardiovascular: DENIES: Abnormal EKG, Angina, Arrhythmia, Congestive Heart Failure, Coronary Artery Disease, Heart Murmur, Hypertension, Hypotension, High Cholesterol, Myocardial Infarction, Rheumatic Fever, Valvular Heart Disease, Other Gastrointestional: Reports: Gastroesophageal Reflux Disease (with ) Neuro/Musculoskeletal: Denies: Back Problems, Cerebrovascular Accident, Depression, Headaches, Loss of Consciousness, Muscle Weakness, Neuromuscular Disorder, Paralysis, Paresthesia, Syncope, Seizures, Other Renal/Endocrine: Reports: Thyroid Disease (hypo) Other History: Reports: Now - Surgical History Anesthesia Reactions: None Hx Family Anesthesia Reaction: No History of Motion Sickness: No - Social History Smoking Status: Never smoker - Airway Assessment Mallampati Score: II TMD: 3 Fingerbreadths Neck Extension: good Overall Assessment: may be difficult intubation - ASA ASA Score: 2 - Discussion Discussion: Discussed risks/options/alternatives of anesthesia and questions answered. Patient consents. Nursing pain assessment noted. Anesthesia Discussion: spouse Attestation Statement: Prior to the delivery of any anesthetic medication, I examined the patient, developed the plan, obtained the patient's consent and discussed the risk and benefits of the procedure with the patient/guardian.
[2017-08-31] MEDS: OXYTOCIN DRIP 30 UNIT/500 ML ML IV SCH ×3 (03:20→16:32)
[2017-08-31] MEDS ORDERED: HYDROCODONE/APAP 5mg/325mg TABLET PO PRN (03:45)
[2017-08-31] MEDS ORDERED: HYDROCORTISONE 2.5% CREAM 30gm RECTALLY PRN (03:45)
[2017-08-31] MEDS ORDERED: DiphenhydrAMINE 25 MG CAPSULE PO PRN (03:45)
[2017-08-31 04:00] VITALS: BMI 25.7
[2017-08-31] MEDS: IBUPROFEN 800 MG TABLET PO PRN ×2 (04:28→16:08)
[2017-08-31] MEDS ORDERED: DOCUSATE CALCIUM 240 MG CAPSULE PO SCH (09:00)
--- NOTE | 2017-08-31 11:06 | Labor and Delivery Note ---
DATE OF DELIVERY: 08/31/2017 DIAGNOSIS 1. 31-year-old white female, G3, P2 at 39.3 weeks gestational age. 2. Spontaneous rupture of membranes. 3. Precipitous spontaneous delivery. 4. 10% clinical placental abruption. 5. Spontaneous vaginal delivery. 6. Female infant, 89 Apgars, 3064 grams (Lesli Lynch). 7. First-degree perineal laceration - repaired under local. DESCRIPTION This is a patient of mine who is 39.3 weeks gestational age. She called in to Labor and Delivery reporting contractions at 20:30 p.m. last night and then she arrived to Maternal/Child about 02:30 this morning. She reported her water broke at 02:00 a.m. Initially her cervix was 5 cm dilated. An IV was started and called for a block but the patient was complete and pushing before the block could be placed. We had a spontaneous vaginal delivery from the OA position with no anesthesia. was bulb suctioned after delivery of the head and then again after delivery of the body and the cord was allowed to drain for two minutes before it was doubly clamped and cut by the 's father. The placenta delivered spontaneously and was intact but there was a larger than normal amount of dark blood with delivery of the infant and the placenta so the placenta was examined and had about a 10% abruption. Perineum was examined and had a first-degree laceration. 1% lidocaine was used to anesthetize the area and then 3-0 Vicryl was used to imbricate perineal muscle inside and then 3-0 chromic was used on the outside to repair the skin. EBL was 350. GBS was negative. At the time of dictation, mother and infant are doing well. [facility]
[2017-08-31 16:30] VITALS: O2SAT 98
[2017-09-01 01:28] VITALS: BP 108/58; PULSE 63; RESP 20; TEMP 98
--- NOTE | 2017-09-01 08:13 | Progress Note ---
OB PP Progress Note Free Text - Date Date: 09/01/17 - Progress Note Progress Note: doing well vss af declines meds dc instructions reviewed q&a-krb
== END 2017-09-01 14:20 | disposition home or self-care (01) | DRG 774 ==
LOC: OBOBS 02:26 → MC 02:27
PROVIDERS: ADMIT Obstetrics & Gynecology; ATTEND Obstetrics & Gynecology